=== PATIENT | female | born 1985 | race Caucasian/White ===

== ENCOUNTER 2017-03-06 08:27 | Inpatient (IN) | payer BC ==
[~2017-03-06] VITALS: Ht 139.7 cm; Wt 49.5 kg
[2017-03-06] VITALS (15 sets, daily range): BP systolic 80–127; BP diastolic 50–82
[2017-03-06] MEDS ORDERED: KETOROLAC 30 MG/ML VIAL. ONE (08:52)
--- NOTE | 2017-03-06 08:57 | ED.ADGEN ---
Past History Past Medical History: No Pertinent History Past Surgical History: Additional Past Surgical Histo: on June 04, 2016 Alcohol Use: None Drug Use: None Adult General HPI HPI Patient is a 32-year-old woman, with a history of surgery to the left kidney due to "a bent tube", per her description it sounds as though there was an issue with the ureter which was surgically repaired a urinary half ago , who presents to the emergency department with a complaint of left-sided flank pain, dysuria, nausea, vomiting, and fever that began yesterday. Patient states that she's had similar symptoms previously with a urinary tract infection. She states that she last followed with her urologist at in November, and was told that everything was working well. She has not had any history of kidney stones, she denies any injuries, any discharge or drainage from the vagina, any abdominal pain, any weakness, numbness, tingling, swelling extremities or other complaints. She has not taken anything prior to coming to the ED. Patient is febrile emergency department upon arrival, the temperature of 101.1 orally, heart rate of 103, blood pressure 128/68, oxygen saturation of 99% room air rested for rate is 20 and unlabored. Review of Systems Review of Systems Constitutional: Fever and chills 2 days. Eyes: Denies change in visual acuity, redness, or eye pain [] HENT: Denies nasal congestion or sore throat [] Respiratory: Denies cough or shortness of breath [] Cardiovascular: No additional information not addressed in HPI [] GI: Denies abdominal pain, bloody stools or diarrhea, nausea and vomiting 2 this morning. [] : Dysuria 2 days. Musculoskeletal: Denies back pain or joint pain [] left-sided flank pain. Integument: Denies rash or skin lesions [] Neurologic: Denies headache, focal weakness or sensory changes [] Endocrine: Denies polyuria or polydipsia [] Current Medications Current Medications Current Medications Medications (Trade) Dose Ordered Sig/Obdulio Start Time Stop Time Status Last Admin Dose Admin Acetaminophen (Tylenol) 1,000 mg 1X ONCE 03/06/17 09:00 03/06/17 09:01 DC 03/06/17 09:00 1,000 MG Fentanyl Citrate (Fentanyl 2ml Vial) 25 mcg PRN Q15MIN PRN 03/06/17 09:30 03/07/17 09:29 03/06/17 10:04 25 MCG Ketorolac Tromethamine (Toradol) 30 mg STK-MED ONCE 03/06/17 08:52 03/06/17 08:53 DC Levofloxacin (Levaquin) 750 mg STK-MED ONCE 03/06/17 09:30 03/06/17 09:31 DC Ondansetron HCl (Zofran) 4 mg 1X ONCE 03/06/17 09:00 03/06/17 09:01 DC 03/06/17 09:00 4 MG Phenazopyridine HCl (Pyridium) 200 mg 1X ONCE 03/06/17 09:45 03/06/17 09:46 DC 03/06/17 09:34 200 MG Sodium Chloride 1,000 ml @ 1,000 mls/hr 1X ONCE 03/06/17 09:45 03/06/17 10:44 DC 03/06/17 09:34 1,000 MLS/HR Allergies Allergies Allergies Coded Allergies Type Severity Reaction Last Updated Verified No Known Drug Allergies 06/09/16 No Physical Exam Physical Exam Constitutional: Well developed, well nourished, no acute distress, non-toxic appearance. [] HENT: Normocephalic, atraumatic, bilateral external ears normal, oropharynx moist, no oral exudates, nose normal. [] Eyes: PERRLA, EOMI, conjunctiva normal, no discharge. [] Neck: Normal range of motion, no tenderness, supple, no stridor. [] Cardiovascular:Heart rate regular rhythm, no murmur, S1, S2, no rubs or gallops. [] Lungs & Thorax: Bilateral breath sounds clear to auscultation , no wheezing, rhonchi, rales. No chest or crepitus or tenderness. [] Abdomen: Bowel sounds normal, soft, no tenderness, no rebound, rigidity, no guarding, no masses, no pulsatile masses. [] Skin: Warm, dry, no erythema, no rash. [] Back: No tenderness, patient with left-sided CVA tenderness. Extremities: No tenderness, no cyanosis, no clubbing, ROM intact, no edema. [] Negative Homans sign. Neurologic: Alert and oriented X 3, normal motor function, normal sensory function, no focal deficits noted. [] Psychologic: Affect normal, judgement normal, mood normal. [] Current Patient Data Vital Signs Vital Signs Date Time Temp Pulse Resp B/P (MAP) Pulse Ox O2 Delivery O2 Flow Rate FiO2 03/06/17 11:15 57 16 83/40 (54) 98 Room Air 03/06/17 08:35 101.0 Lab Results Laboratory Tests Test 03/06/17 08:40 03/06/17 08:51 03/06/17 08:53 Urine Collection Type Unknown Urine Color Yellow Urine Clarity Cloudy Urine pH 6.0 Urine Specific [place] 1.015 Urine Protein Neg (NEG-TRACE) Urine Glucose (UA) Neg mg/dL (NEG) Urine Ketones (Stick) Neg mg/dL (NEG) Urine Blood Small (NEG) Urine Nitrite Pos (NEG) Urine Bilirubin Neg (NEG) Urine Urobilinogen Dipstick 0.2 mg/dL (0.2 mg/dL) Urine Leukocyte Esterase Mod (NEG) Urine RBC 3-5 /HPF (0-2) Urine WBC >40 /HPF (0-4) Urine Squamous Epithelial Cells Few /LPF Urine Bacteria Many /HPF (0-FEW) Urine Mucus Slight /LPF POC Urine HCG, Qualitative hcg negative (Negative) White Blood Count 11.8 x10^3/uL (4.0-11.0) H Red Blood Count 4.51 x10^6/uL (3.50-5.40) Hemoglobin 11.8 g/dL (12.0-15.5) L Hematocrit 36.6 % (36.0-47.0) Mean Corpuscular Volume 81 fL (79-100) Mean Corpuscular Hemoglobin 26 pg (25-35) Mean Corpuscular Hemoglobin Concent 32 g/dL (31-37) Red Cell Distribution Width 14.3 % (11.5-14.5) Platelet Count 263 x10^3/uL (140-400) Neutrophils (%) (Auto) 82 % (31-73) H Lymphocytes (%) (Auto) 11 % (24-48) L Monocytes (%) (Auto) 6 % (0-9) Eosinophils (%) (Auto) 0 % (0-3) Basophils (%) (Auto) 1 % (0-3) Neutrophils # (Auto) 9.7 x10^3uL (1.8-7.7) H Lymphocytes # (Auto) 1.3 x10^3/uL (1.0-4.8) Monocytes # (Auto) 0.6 x10^3/uL (0.0-1.1) Eosinophils # (Auto) 0.0 x10^3/uL (0.0-0.7) Basophils # (Auto) 0.1 x10^3/uL (0.0-0.2) Sodium Level 134 mmol/L (136-145) L Potassium Level 3.4 mmol/L (3.5-5.1) L Chloride Level 101 mmol/L (98-107) Carbon Dioxide Level 29 mmol/L (21-32) Anion Gap 4 (6-14) L Blood Urea Nitrogen 8 mg/dL (7-20) Creatinine 0.9 mg/dL (0.6-1.0) Estimated GFR (Cockcroft-Gault) 72.6 Glucose Level 119 mg/dL (70-99) H Calcium Level 8.6 mg/dL (8.5-10.1) Magnesium Level 2.0 mg/dL (1.8-2.4) EKG EKG Not indicated. Radiology/Procedures Radiology/Procedures [] Course & Med Decision Making Course & Med Decision Making Pertinent Labs and Imaging studies reviewed. (See chart for details) Patient states that her last ultrasound performed several months ago, and was told to be normal at that time. Is agreeable to receiving IV fluids, antiemetics , pain medication, laboratory studies including urinalysis, and repeat ultrasound of the left kidney to ensure abnormalities since her surgery. Urinalysis is positive for nitrates, with greater than 40 white blood cells and many bacteria in the urine. Culture is pending. Patient given oral Levaquin, 750 mg in the ED by mouth without issue, along with Pyridium. On reevaluation, patient is now afebrile, oral temperature of 98.5, heart rate is now in the 60s and 70s, however blood pressure has dropped to 82/43, a second liter of fluid is administered. Patient states that she is feeling much better after receiving pain medication. After administration aside a liter fluid, patient received remains afebrile, has a leukocytosis that is very mild 11.8, without other concerning findings identified, and has tolerated oral medications. However she remains hypotensive, blood pressure of 74/36 when standing, heart rate in the 70s, and states that she is feeling dizzy. Patient has normal capillary refill, and states that this is happened previously when she's had infections in her kidney. She does reiterate that she is feeling better, although she is dizzy with standing. I did discuss with patient that due to her hypotension, with dizziness, that admission to hospital for continued IV fluids, monitoring, IV antibiotics for treatment of pyelonephritis would be most appropriate. Patient is agreeable with this plan. I did speak with Dr. Bocanegra of internal medicine, patient was accepted to her service as a full admission to the medical telemetry floor, will continue IV fluids, will proceed with IV ceftriaxone, and close monitoring. Bridge orders entered per discussion. Final Impression Final Impression [] Problems: Dragon Disclaimer Dragon Disclaimer This electronic medical record was generated, in whole or in part, using a voice recognition dictation system. Departure: Impression: Primary Impression: Pyelonephritis Additional Impression: Hypotension Disposition: ADMITTED INPATIENT Condition: LEIGHANNED ABHINAV DEL ROSARIO DO Mar 06, 2017 08:57
[2017-03-06] MEDS ORDERED: KETOROLAC 15 MG/ML VIAL. IV ONE (09:00)
[2017-03-06] MEDS ORDERED: IV NORMAL SALINE 1,000ML 1,000 ML IV SCH (09:00)
[2017-03-06] MEDS ORDERED: ONDANSETRON PF 4 MG/2 ML VIAL. IV ONE (09:00)
[2017-03-06] MEDS ORDERED: ACETAMINOPHEN 500 MG TABLET PO ONE (09:00)
[2017-03-06 09:06] LABS: BASO # 0.1 x10^3/uL (0.0-0.2); BASO % 1 % (0-3); EOS % 0 % (0-3); HEMATOCRIT 36.6 % (36.0-47.0); HEMOGLOBIN 11.8 g/dL (12.0-15.5); LYMPH # 1.3 x10^3/uL (1.0-4.8); LYMPH % 11 % (24-48); MEAN CORPUSCULAR HEMOGLOBIN 26 pg (25-35); MEAN CORPUSCULAR HGB CONC 32 g/dL (31-37); MEAN CORPUSCULAR VOLUME 81 fL (79-100); MONO # 0.6 x10^3/uL (0.0-1.1); MONO % 6 % (0-9); NEUT # 9.7 x10^3uL (1.8-7.7); NEUT % 82 % (31-73); PLATELET COUNT 263 x10^3/uL (140-400); RED BLOOD COUNT 4.51 x10^6/uL (3.50-5.40); RED CELL DISTRIBUTION WIDTH 14.3 % (11.5-14.5); WHITE BLOOD COUNT 11.8 x10^3/uL (4.0-11.0)
[2017-03-06 09:11] LABS: CALCIUM 8.6 mg/dL (8.5-10.1); CREATININE 0.9 mg/dL (0.6-1.0); GFR 72.6; POTASSIUM 3.4 mmol/L (3.5-5.1)
[2017-03-06 09:18] LABS: BILIRUBIN,URINE NEG (NEG); CLARITY,URINE CLOUDY; COLOR,URINE YELLOW; GLUCOSE,URINE NEG (NEG); NITRITE,URINE POS (NEG); UROBILINOGEN,URINE 0.2 mg/dL (0.2 mg/dL); WBC,URINE >40 /HPF (0-4)
[2017-03-06 09:19] LABS: BACTERIA,URINE MANY /HPF (0-FEW); SQUAMOUS EPITHELIAL CELL,UR FEW /LPF
[2017-03-06] MEDS ORDERED: fentaNYL PF 100 MCG/2 ML VIAL IV PRN ×2 (09:30→12:00)
[2017-03-06] MEDS ORDERED: levoFLOXacin 750 MG TABLET ONE (09:30)
[2017-03-06] MEDS ORDERED: levoFLOXacin 750 MG TABLET PO ONE (09:45)
[2017-03-06] MEDS ORDERED: IV NORMAL SALINE 1,000ML 1,000 ML IV ONE ×2 (09:45→12:00)
[2017-03-06] MEDS ORDERED: PHENAZOPYRIDINE 200 MG TABLET. PO ONE (09:45)
--- NOTE | 2017-03-06 10:55 | RAD ---
Left renal ultrasound, December 04, 2016: History: Pain, fever, recent ureteral surgery Only the left kidney was examined as requested. It measures 12.2 cm in length. There is a mildly prominent extrarenal pelvis. There is no evidence of hydronephrosis or a renal mass. The visualized portions of the urinary bladder are unremarkable. IMPRESSION: No significant left renal abnormality is detected.
[2017-03-06] MEDS ORDERED: ONDANSETRON PF 4 MG/2 ML VIAL. IV PRN (12:00)
[2017-03-06] MEDS ORDERED: IV NORMAL SALINE 50ML 50 ML ONE (12:05)
[2017-03-06] MEDS ORDERED: cefTRIAXone SODIUM 1 GM VIAL IV ONE (12:06)
[2017-03-06] MEDS ORDERED: IV NORMAL SALINE 1,000ML 1,500 ML IV ONE (13:00)
[2017-03-06] MEDS ORDERED: POTASSIUM CHLORIDE 20 MEQ TABLET.ER. PO ONE (13:45)
[2017-03-06] MEDS: IV NORMAL SALINE 1,000ML 1,000 ML IV SCH ×2 (13:55→17:11)
[2017-03-06] MEDS ORDERED: KETOROLAC 30 MG/ML VIAL. IV PRN (19:00)
[2017-03-06] MEDS: ACETAMINOPHEN 325 MG TABLET PO PRN (19:23)
--- NOTE | 2017-03-06 19:57 | HP ---
ADMIT DATE: 03/06/2017 REASON FOR ADMISSION: Pyelonephritis. HISTORY OF PRESENT ILLNESS: This is a 32-year-old female who presented to the Emergency Room complaining of left flank with a fever at home, nausea and vomiting. She has had a history of urinary tract infections at home. She is followed by an urologist at because she has a history of left kidney "bend tube but not exactly sure what the problem was." It was surgically repaired with not exactly sure what date is on that. PAST SURGICAL HISTORY: x 3 and this urologic surgery. MEDICATIONS: None. ALLERGIES: None. HABITS: Tobacco: None. Drugs: None. REVIEW OF SYSTEMS: Negative except for HPI. The patient is complaining of feeling a little dizzy also. IMMUNIZATIONS: Flu shot last year. OBJECTIVE: VITAL SIGNS: Temperature in the emergency room was 101, pulse 103. Initial blood pressure was 85/49, current blood pressure 113/82, height 55 inches, weight 107.38 pounds. GENERAL: A 32-year-old in no acute distress. HEENT: Hearing is normal. Her eyes are clear. Her throat was clear. NECK: Supple. There is no adenopathy. LUNGS: Clear to auscultation. CARDIOVASCULAR: Regular rhythm and rate. ABDOMEN: Soft, a little bit tender in the left upper quadrant. Positive left flank pain. Negative pain over the bladder. No other masses palpated. EXTREMITIES: Without edema. LABORATORY DATA: White blood cell count 11.8, 82% neutrophils, 11% lymphs. Chemistry: Sodium 134, potassium 3.4, lactic acid was 0.4. Urinalysis positive for nitrites, positive leukocyte esterase, greater than 40 white cells, 3-5 red cells. HCG negative. Left kidney ultrasound is negative. ASSESSMENT: Pyelonephritis, positive severe sepsis screen, dehydration, hypokalemia. PLAN: IV fluids, IV ceftriaxone, pain management with Toradol only. See how she is feeling tomorrow. LEXX PACE DO DR: MYNOR/brittany JOB#: [id number] / [id number]
[2017-03-07] VITALS (13 sets, daily range): BP systolic 87–105; BP diastolic 54–67
[2017-03-07] MEDS: IV NORMAL SALINE 1,000ML 1,000 ML IV SCH ×2 (01:06→10:41)
[2017-03-07 06:58] LABS: BASO # 0.1 x10^3/uL (0.0-0.2); BASO % 1 % (0-3); EOS # 0.1 x10^3/uL (0.0-0.7); EOS % 1 % (0-3); HEMATOCRIT 32.1 % (36.0-47.0); HEMOGLOBIN 10.2 g/dL (12.0-15.5); LYMPH # 2.5 x10^3/uL (1.0-4.8); LYMPH % 24 % (24-48); MEAN CORPUSCULAR HEMOGLOBIN 27 pg (25-35); MEAN CORPUSCULAR HGB CONC 32 g/dL (31-37); MEAN CORPUSCULAR VOLUME 83 fL (79-100); MONO # 0.7 x10^3/uL (0.0-1.1); MONO % 7 % (0-9); NEUT % 68 % (31-73); PLATELET COUNT 213 x10^3/uL (140-400); RED BLOOD COUNT 3.86 x10^6/uL (3.50-5.40); RED CELL DISTRIBUTION WIDTH 14.7 % (11.5-14.5); WHITE BLOOD COUNT 10.3 x10^3/uL (4.0-11.0)
[2017-03-07 06:59] LABS: CALCIUM 8.1 mg/dL (8.5-10.1); CREATININE 0.6 mg/dL (0.6-1.0); GFR 115.9; POTASSIUM 3.9 mmol/L (3.5-5.1)
[2017-03-07] MEDS ORDERED: MAGNESIUM SULFATE 2GM 50 ML IV ONE (07:30)
[2017-03-07] MEDS: ACETAMINOPHEN 325 MG TABLET PO PRN (08:31)
--- NOTE | 2017-03-07 14:26 | PDOC ---
PROGRESS NOTES Diagnosis Problem Problems Medical Problems: (1) Hypotension Status: Acute (2) Pyelonephritis Status: Acute Assessment Problems Medical Problems: (1) Hypotension Status: Acute (2) Pyelonephritis Status: Acute Subjective WANTS TO LEAVE AMA BUT WANTS A PRESCRIPTION FOR ANTIBIOTICS. I TOLD HER THIS AM THAT SHE HAS A KIDNEY INFECTION AND THAT SHE NEEDS ANOTHER DAY OF IV ANTIBIOTICS. SHE HAS NOT BEEN 24 HOURS WITHOUT A FEVER. SHE HAS SMALL CHILDREN AT HOME AND REALLY NEED TO REST . I CANNOT IN GOOD CONSCIENCE AGREE TO SEND HER HOME. Objective Vital Signs Date Time Temp Pulse Resp B/P (MAP) Pulse Ox O2 Delivery O2 Flow Rate FiO2 03/07/17 11:12 99.1 03/07/17 11:00 Room Air 03/07/17 07:44 77 20 98/67 (77) 99 Intake and Output 03/07/17 07:00 Intake Total 8982 ml Output Total 2125 ml Balance 6857 ml Intake Oral 1930 ml IV Total 7052 ml Output Urine Total 2125 ml # Voids 3 Review of Relevant I have reviewed the following items denise (where applicable) has been applied. Labs Laboratory Tests Test 03/06/17 08:40 03/06/17 08:51 03/06/17 08:53 03/06/17 12:58 Urine Collection Type Unknown Urine Color Yellow Urine Clarity Cloudy Urine pH 6.0 Urine Specific [place] 1.015 Urine Protein Neg (NEG-TRACE) Urine Glucose (UA) Neg mg/dL (NEG) Urine Ketones (Stick) Neg mg/dL (NEG) Urine Blood Small (NEG) Urine Nitrite Pos (NEG) Urine Bilirubin Neg (NEG) Urine Urobilinogen Dipstick 0.2 mg/dL (0.2 mg/dL) Urine Leukocyte Esterase Mod (NEG) Urine RBC 3-5 /HPF (0-2) Urine WBC >40 /HPF (0-4) Urine Squamous Epithelial Cells Few /LPF Urine Bacteria Many /HPF (0-FEW) Urine Mucus Slight /LPF Bedside Urine HCG, Qualitative hcg negative (Negative) White Blood Count 11.8 x10^3/uL (4.0-11.0) Red Blood Count 4.51 x10^6/uL (3.50-5.40) Hemoglobin 11.8 g/dL (12.0-15.5) Hematocrit 36.6 % (36.0-47.0) Mean Corpuscular Volume 81 fL (79-100) Mean Corpuscular Hemoglobin 26 pg (25-35) Mean Corpuscular Hemoglobin Concent 32 g/dL (31-37) Red Cell Distribution Width 14.3 % (11.5-14.5) Platelet Count 263 x10^3/uL (140-400) Neutrophils (%) (Auto) 82 % (31-73) Lymphocytes (%) (Auto) 11 % (24-48) Monocytes (%) (Auto) 6 % (0-9) Eosinophils (%) (Auto) 0 % (0-3) Basophils (%) (Auto) 1 % (0-3) Neutrophils # (Auto) 9.7 x10^3uL (1.8-7.7) Lymphocytes # (Auto) 1.3 x10^3/uL (1.0-4.8) Monocytes # (Auto) 0.6 x10^3/uL (0.0-1.1) Eosinophils # (Auto) 0.0 x10^3/uL (0.0-0.7) Basophils # (Auto) 0.1 x10^3/uL (0.0-0.2) Sodium Level 134 mmol/L (136-145) Potassium Level 3.4 mmol/L (3.5-5.1) Chloride Level 101 mmol/L (98-107) Carbon Dioxide Level 29 mmol/L (21-32) Anion Gap 4 (6-14) Blood Urea Nitrogen 8 mg/dL (7-20) Creatinine 0.9 mg/dL (0.6-1.0) Estimated GFR (Cockcroft-Gault) 72.6 Glucose Level 119 mg/dL (70-99) Calcium Level 8.6 mg/dL (8.5-10.1) Magnesium Level 2.0 mg/dL (1.8-2.4) Lactic Acid Level 0.4 mmol/L (0.4-2.0) Test 03/06/17 13:54 03/07/17 05:40 Nasal Screen MRSA (PCR) Negative (Negative) White Blood Count 10.3 x10^3/uL (4.0-11.0) Red Blood Count 3.86 x10^6/uL (3.50-5.40) Hemoglobin 10.2 g/dL (12.0-15.5) Hematocrit 32.1 % (36.0-47.0) Mean Corpuscular Volume 83 fL (79-100) Mean Corpuscular Hemoglobin 27 pg (25-35) Mean Corpuscular Hemoglobin Concent 32 g/dL (31-37) Red Cell Distribution Width 14.7 % (11.5-14.5) Platelet Count 213 x10^3/uL (140-400) Neutrophils (%) (Auto) 68 % (31-73) Lymphocytes (%) (Auto) 24 % (24-48) Monocytes (%) (Auto) 7 % (0-9) Eosinophils (%) (Auto) 1 % (0-3) Basophils (%) (Auto) 1 % (0-3) Neutrophils # (Auto) 7.0 x10^3uL (1.8-7.7) Lymphocytes # (Auto) 2.5 x10^3/uL (1.0-4.8) Monocytes # (Auto) 0.7 x10^3/uL (0.0-1.1) Eosinophils # (Auto) 0.1 x10^3/uL (0.0-0.7) Basophils # (Auto) 0.1 x10^3/uL (0.0-0.2) Sodium Level 136 mmol/L (136-145) Potassium Level 3.9 mmol/L (3.5-5.1) Chloride Level 107 mmol/L (98-107) Carbon Dioxide Level 21 mmol/L (21-32) Anion Gap 8 (6-14) Blood Urea Nitrogen 5 mg/dL (7-20) Creatinine 0.6 mg/dL (0.6-1.0) Estimated GFR (Cockcroft-Gault) 115.9 Glucose Level 89 mg/dL (70-99) Calcium Level 8.1 mg/dL (8.5-10.1) Magnesium Level 1.6 mg/dL (1.8-2.4) Microbiology 03/06/17 Blood Culture - Preliminary, Resulted NO GROWTH AFTER 1 DAY 03/06/17 Urine Culture - Preliminary, Resulted 03/06/17 Urine Culture Result 1 (DILSHAD) - Preliminary, Resulted Medications Current Medications Sodium Chloride 1,000 ml @ 1,000 mls/hr Q1H IV Last administered on 03/06/17t 08:55; Start 8/24/17 at 09:00; Stop 03/06/17 at 09:59; Status DC Ondansetron HCl (Zofran) 4 mg 1X ONCE IV Last administered on 03/06/17 09:00 ; Start 03/06/17 at 09:00; Stop 03/06/17 at 09:01; Status DC Ketorolac Tromethamine (Toradol) 10 mg 1X ONCE IV Last administered on 08:55; Start 03/06/17 at 09:00; Stop 03/06/17 at 09:01; Status DC Acetaminophen (Tylenol) 1,000 mg 1X ONCE PO Last administered on 03/06/17 09: 00; Start 03/06/17 at 09:00; Stop 03/06/17 at 09:01; Status DC Ketorolac Tromethamine (Toradol) 30 mg STK-MED ONCE .ROUTE ; Start 03/06/17 at 08:52; Stop 03/06/17 at 08:53; Status DC Levofloxacin (Levaquin) 750 mg 1X ONCE PO Last administered on 03/06/17 09:34 ; Start 03/06/17 at 09:45; Stop 03/06/17 at 09:46; Status DC Phenazopyridine HCl (Pyridium) 200 mg 1X ONCE PO Last administered on 09:34; Start 03/06/17 at 09:45; Stop 03/06/17 at 09:46; Status DC Sodium Chloride 1,000 ml @ 1,000 mls/hr 1X ONCE IV Last administered on 09:34; Start 03/06/17 at 09:45; Stop 03/06/17 at 10:44; Status DC Fentanyl Citrate (Fentanyl 2ml Vial) 25 mcg PRN Q15MIN PRN IV PAIN GREATER THAN 3/10 Last administered on 03/06/17 10:04; Start 03/06/17 at 09:30; Stop at 14:26; Status DC Levofloxacin (Levaquin) 750 mg STK-MED ONCE .ROUTE ; Start 03/06/17 at 09:30; Stop 03/06/17 at 09:31; Status DC Sodium Chloride 1,000 ml @ 125 mls/hr 1X ONCE IV Last administered on 12:00; Start 03/06/17 at 12:00; Stop 03/06/17 at 19:59; Status DC Ondansetron HCl (Zofran) 4 mg PRN Q4HRS PRN IV NAUSEA/VOMITING; Start 03/06/17 at 12:00; Stop 03/07/17 at 11:59; Status DC Fentanyl Citrate (Fentanyl 2ml Vial) 50 mcg PRN Q1HR PRN IV PAIN; Start at 12:00; Stop 03/06/17 at 14:26; Status DC Sodium Chloride 1,000 ml @ 125 mls/hr Q8H IV Last administered on 03/07/17 10 :41; Start 03/06/17 at 12:10; Stop 03/07/17 at 12:09; Status DC Acetaminophen (Tylenol) 650 mg PRN Q4HRS PRN PO FEVER Last administered on 03/07 08:31; Start 03/06/17 at 12:00; Stop 03/07/17 at 11:59; Status DC Ceftriaxone Sodium 1 gm/ Sodium Chloride 50 ml @ 100 mls/hr 1X ONCE IV Last administered on 03/06/17 12:05; Start 03/06/17 at 12:10; Stop 03/06/17 at 12:39 ; Status DC Ceftriaxone Sodium 1 gm/ Sodium Chloride 50 ml @ 100 mls/hr Q24H IV Last administered on 03/07/17 10:37; Start 03/07/17 at 12:00 Sodium Chloride 50 ml @ As Directed STK-MED ONCE .ROUTE ; Start 03/06/17 at 12: 05; Stop 03/06/17 at 12:13; Status DC Ceftriaxone Sodium (Rocephin) 1 gm STK-MED ONCE IV ; Start 03/06/17 at 12:06; Stop 03/06/17 at 12:13; Status DC Sodium Chloride 1,500 ml @ 1,500 mls/hr Q1H ONCE IV Last administered on 13:09; Start 03/06/17 at 13:00; Stop 03/06/17 at 13:59; Status DC Potassium Chloride (Klor-Con) 40 meq 1X ONCE PO Last administered on 13:55; Start 03/06/17 at 13:45; Stop 03/06/17 at 13:47; Status DC Ceftriaxone Sodium 1 gm/ Sodium Chloride 50 ml @ 100 mls/hr 1X ONCE IV Last administered on 03/06/17 13:30; Start 03/06/17 at 13:30; Stop 03/06/17 at 16:32 ; Status DC Ketorolac Tromethamine (Toradol) 30 mg PRN Q6HRS PRN IV PAIN; Start 03/06/17 at 19:00; Stop 03/11/17 at 18:59 Magnesium Sulfate 50 ml @ 25 mls/hr 1X ONCE IV Last administered on 03/07/17 08:15; Start 03/07/17 at 07:30; Stop 03/07/17 at 09:29; Status DC Active Scripts Active Reported No Known Medications Prior To Admisstion (Info) Each 1 Each Vitals/I & O Vital Sign - Last 24 Hours 03/06/17 03/06/17 03/06/17 03/06/17 14:30 15:00 15:30 16:00 Temp 98.2 Pulse 68 72 70 68 Resp 16 16 16 20 B/P (MAP) 80/50 (60) 94/59 (71) 94/59 (71) 94/58 (70) Pulse Ox 99 99 99 99 O2 Delivery Room Air Room Air Room Air Room Air 03/06/17 03/06/17 03/06/17 03/06/17 16:30 17:03 17:23 19:20 Pulse 70 68 75 Resp 22 16 16 B/P (MAP) 95/60 (72) 81/51 (61) 113/82 (92) Pulse Ox 98 99 99 O2 Delivery Room Air Room Air Room Air Room Air 03/06/17 03/06/17 03/06/17 03/06/17 19:36 20:10 21:20 23:05 Temp 101.1 100.1 99.8 Pulse 81 79 85 77 Resp 17 18 16 16 B/P (MAP) 113/72 (86) 127/81 (96) 110/74 (86) 104/74 (84) Pulse Ox 99 100 99 99 O2 Delivery Room Air Room Air Room Air Room Air 03/06/17 03/06/17 03/07/17 03/07/17 23:55 23:55 01:00 02:20 Pulse 82 75 77 Resp 16 16 16 B/P (MAP) 102/69 (80) 96/57 (70) 92/57 (69) Pulse Ox 100 98 99 O2 Delivery Room Air Room Air Room Air Room Air 03/07/17 03/07/17 03/07/17 03/07/17 03:05 03:55 03:55 05:10 Temp 99.4 Pulse 79 69 76 Resp 16 16 16 B/P (MAP) 91/58 (69) 93/59 (70) 99/63 (75) Pulse Ox 98 98 98 O2 Delivery Room Air Room Air Room Air Room Air 03/07/17 03/07/17 03/07/17 03/07/17 06:05 07:44 08:00 08:37 Temp 99.3 Pulse 70 77 Resp 18 20 B/P (MAP) 95/63 (74) 98/67 (77) Pulse Ox 99 99 O2 Delivery Room Air Room Air Room Air 03/07/17 03/07/17 03/07/17 09:22 11:00 11:12 Temp 99.7 99.1 O2 Delivery Room Air Intake and Output 03/06/17 03/06/17 03/07/17 15:00 23:00 07:00 Intake Total 4790 ml 1270 ml 2922 ml Output Total 575 ml 1550 ml Balance 4790 ml 695 ml 1372 ml LEXX PACE DO Mar 07, 2017 14:26
--- NOTE | 2017-03-07 14:54 | PDOC ---
OBJECTIVE: Problems: Problems Medical Problems: (1) Hypotension Status: Acute (2) Pyelonephritis Status: Acute Vital Signs: Vital Signs Date Time Temp Pulse Resp B/P (MAP) Pulse Ox O2 Delivery O2 Flow Rate FiO2 03/07/17 11:12 99.1 03/07/17 11:00 Room Air 03/07/17 07:44 77 20 98/67 (77) 99 I & O Intake and Output 03/07/17 07:00 Intake Total 8982 ml Output Total 2125 ml Balance 6857 ml Intake Oral 1930 ml IV Total 7052 ml Output Urine Total 2125 ml # Voids 3 Labs: Laboratory Tests Test 03/06/17 08:40 03/06/17 08:51 03/06/17 08:53 03/06/17 12:58 Urine Collection Type Unknown Urine Color Yellow Urine Clarity Cloudy Urine pH 6.0 Urine Specific [place] 1.015 Urine Protein Neg (NEG-TRACE) Urine Glucose (UA) Neg mg/dL (NEG) Urine Ketones (Stick) Neg mg/dL (NEG) Urine Blood Small (NEG) Urine Nitrite Pos (NEG) Urine Bilirubin Neg (NEG) Urine Urobilinogen Dipstick 0.2 mg/dL (0.2 mg/dL) Urine Leukocyte Esterase Mod (NEG) Urine RBC 3-5 /HPF (0-2) Urine WBC >40 /HPF (0-4) Urine Squamous Epithelial Cells Few /LPF Urine Bacteria Many /HPF (0-FEW) Urine Mucus Slight /LPF Bedside Urine HCG, Qualitative hcg negative (Negative) White Blood Count 11.8 x10^3/uL (4.0-11.0) Red Blood Count 4.51 x10^6/uL (3.50-5.40) Hemoglobin 11.8 g/dL (12.0-15.5) Hematocrit 36.6 % (36.0-47.0) Mean Corpuscular Volume 81 fL (79-100) Mean Corpuscular Hemoglobin 26 pg (25-35) Mean Corpuscular Hemoglobin Concent 32 g/dL (31-37) Red Cell Distribution Width 14.3 % (11.5-14.5) Platelet Count 263 x10^3/uL (140-400) Neutrophils (%) (Auto) 82 % (31-73) Lymphocytes (%) (Auto) 11 % (24-48) Monocytes (%) (Auto) 6 % (0-9) Eosinophils (%) (Auto) 0 % (0-3) Basophils (%) (Auto) 1 % (0-3) Neutrophils # (Auto) 9.7 x10^3uL (1.8-7.7) Lymphocytes # (Auto) 1.3 x10^3/uL (1.0-4.8) Monocytes # (Auto) 0.6 x10^3/uL (0.0-1.1) Eosinophils # (Auto) 0.0 x10^3/uL (0.0-0.7) Basophils # (Auto) 0.1 x10^3/uL (0.0-0.2) Sodium Level 134 mmol/L (136-145) Potassium Level 3.4 mmol/L (3.5-5.1) Chloride Level 101 mmol/L (98-107) Carbon Dioxide Level 29 mmol/L (21-32) Anion Gap 4 (6-14) Blood Urea Nitrogen 8 mg/dL (7-20) Creatinine 0.9 mg/dL (0.6-1.0) Estimated GFR (Cockcroft-Gault) 72.6 Glucose Level 119 mg/dL (70-99) Calcium Level 8.6 mg/dL (8.5-10.1) Magnesium Level 2.0 mg/dL (1.8-2.4) Lactic Acid Level 0.4 mmol/L (0.4-2.0) Test 03/06/17 13:54 03/07/17 05:40 Nasal Screen MRSA (PCR) Negative (Negative) White Blood Count 10.3 x10^3/uL (4.0-11.0) Red Blood Count 3.86 x10^6/uL (3.50-5.40) Hemoglobin 10.2 g/dL (12.0-15.5) Hematocrit 32.1 % (36.0-47.0) Mean Corpuscular Volume 83 fL (79-100) Mean Corpuscular Hemoglobin 27 pg (25-35) Mean Corpuscular Hemoglobin Concent 32 g/dL (31-37) Red Cell Distribution Width 14.7 % (11.5-14.5) Platelet Count 213 x10^3/uL (140-400) Neutrophils (%) (Auto) 68 % (31-73) Lymphocytes (%) (Auto) 24 % (24-48) Monocytes (%) (Auto) 7 % (0-9) Eosinophils (%) (Auto) 1 % (0-3) Basophils (%) (Auto) 1 % (0-3) Neutrophils # (Auto) 7.0 x10^3uL (1.8-7.7) Lymphocytes # (Auto) 2.5 x10^3/uL (1.0-4.8) Monocytes # (Auto) 0.7 x10^3/uL (0.0-1.1) Eosinophils # (Auto) 0.1 x10^3/uL (0.0-0.7) Basophils # (Auto) 0.1 x10^3/uL (0.0-0.2) Sodium Level 136 mmol/L (136-145) Potassium Level 3.9 mmol/L (3.5-5.1) Chloride Level 107 mmol/L (98-107) Carbon Dioxide Level 21 mmol/L (21-32) Anion Gap 8 (6-14) Blood Urea Nitrogen 5 mg/dL (7-20) Creatinine 0.6 mg/dL (0.6-1.0) Estimated GFR (Cockcroft-Gault) 115.9 Glucose Level 89 mg/dL (70-99) Calcium Level 8.1 mg/dL (8.5-10.1) Magnesium Level 1.6 mg/dL (1.8-2.4) PLAN: LEFT AMA AND COULD NOT BE PERSUADED. LEXX PACE DO Mar 07, 2017 14:54
--- NOTE | 2017-03-08 06:05 | PN ---
DATE: 03/07/2017 PROBLEMS: 1. Pyelonephritis. 2. Positive severe sepsis screen. 3. Dehydration. 4. Hypokalemia. 5. Hypomagnesemia. SUBJECTIVE: The patient wants to go home today. She has 3 children including a [id number]-cut, the was up with all night; however, she spiked, she had a temperature last night of 100.1 and this morning was 99.7, blood pressure has stabilized and I suspect she has a low normal blood pressure, as she has had 5 liters of fluid. She continues on ceftriaxone and she states she feels better. OBJECTIVE: VITAL SIGNS: Blood pressure 99/63, pulse 76, respirations 16, pulse ox 98% on room air, temperature is 99.4, temperature at the time of exam was 99.7. Intake 8982. Output 2125. GENERAL: Color is better. HEENT: Her tongue is moist. NECK: Supple. LUNGS: Clear. CARDIOVASCULAR: Regular rhythm and rate. ABDOMEN: Soft, nontender. She does still have some left flank pain. EXTREMITIES: Without edema. She did get up and move around without difficulty. PLAN: We will monitor through the day if she feels and I will anticipate discharge tomorrow. I prefer that she stay, get another dose of IV antibiotics and go . She is anxious to leave, but I would prefer that she stay till tomorrow. LEXX PACE DO DR: MYNOR/brittany JOB#: [id number] / [id number]
== END 2017-03-07 14:15 | disposition left against medical advice (07) | DRG 871 ==
LOC: ER 08:27 → ICU 11:48
PROVIDERS: ADMIT Family Medicine; ATTEND Family Medicine
DX: A41.9 Sepsis, unspecified organism (principal); R65.21 Severe sepsis with septic shock; I95.9 Hypotension, unspecified; E83.42 Hypomagnesemia; N12 Tubulo-interstitial nephritis, not specified as acute or chronic; E86.0 Dehydration; E87.6 Hypokalemia; Z53.21 Procedure and treatment not carried out due to patient leaving prior to being seen by health care provider
CPT/HCPCS: 36415; 76775; 80048; 81001; 81025; 83605; 83735; 85025; 87040; 87086; 87186; 87641; 96361; 96374; 96375; J0696; J1885; J2405; J3010; J3475; 99285-25; J7030

== ENCOUNTER 2017-08-24 05:38 | Emergency (ER) | payer BC ==
[~2017-08-24] VITALS: Ht 139.7 cm; Wt 49.8 kg
[2017-08-24 05:45] VITALS: BP 104/67
--- NOTE | 2017-08-24 06:38 | PHYS DOC ---
Past History Past Medical History: No Pertinent History Past Surgical History: Additional Past Surgical Histo: on June 04, 2016 Smoking: Non-smoker Alcohol Use: None Drug Use: None Adult General Chief Complaint Chief Complaint: FLU SYMPTOM HPI HPI 32 years old female patient without medical problem complaining of nasal congestion, nonproductive cough, chest soreness during episodes of cough, fever up to 102 , decrease of appetite since yesterday after she had sick contact at home. Patient had ibuprofen at 0300. Patient denies , vomiting, diarrhea, urinary symptoms. Review of Systems Review of Systems Constitutional: Reports fever and chills [] Eyes: Denies change in visual acuity, redness, or eye pain [] HENT: Reports nasal congestion and sore throat [] Respiratory: Reports cough , denies shortness of breath [] Cardiovascular: No additional information not addressed in HPI [] GI: Denies abdominal pain, nausea, vomiting, bloody stools or diarrhea [] : Denies dysuria or hematuria [] Musculoskeletal: Denies back pain or joint pain [] Integument: Denies rash or skin lesions [] Neurologic: Denies headache, focal weakness or sensory changes [] Endocrine: Denies polyuria or polydipsia [] All other systems were reviewed and found to be within normal limits, except as documented in this note. Allergies Allergies Allergies Coded Allergies Type Severity Reaction Last Updated Verified No Known Drug Allergies 06/09/16 No Physical Exam Physical Exam Constitutional: Well developed, well nourished, mild distress, non-toxic appearance. [] HENT: Normocephalic, atraumatic, bilateral external ears normal, pharyngeal erythema, oropharynx moist, no oral exudates, nose normal. [] Eyes: PERRLA, EOMI, conjunctiva normal, no discharge. [] Neck: Normal range of motion, no tenderness, supple, no stridor. [] Cardiovascular:Heart rate regular rhythm, no murmur [] Lungs & Thorax: Bilateral breath sounds clear to auscultation [] Abdomen: Bowel sounds normal, soft, no tenderness, no masses, no pulsatile masses. [] Skin: Warm, dry, no erythema, no rash. [] Back: No tenderness, no CVA tenderness. [] Extremities: No tenderness, no cyanosis, no clubbing, ROM intact, no edema. [] Neurologic: Alert and oriented X 3, normal motor function, normal sensory function, no focal deficits noted. [] Psychologic: Affect normal, judgement normal, mood normal. [] EKG EKG [] Radiology/Procedures Radiology/Procedures [] Course & Med Decision Making Course & Med Decision Making Pertinent Labs reviewed. (See chart for details) Evaluation of patient in ER showed 32-year-old female patient with flulike symptoms for 2 days. Patient presented with 4 other family members and 2 of them had positive flu A. Because of the same symptom in all family members plan to treat her with Tamiflu. Dragon Disclaimer Dragon Disclaimer This electronic medical record was generated, in whole or in part, using a voice recognition dictation system. Departure Departure: Impression: Primary Impression: Influenza A Disposition: 01 HOME, SELF-CARE Condition: STABLE Referrals: PCP,HERMAN (PCP) Patient Instructions: Influenza A (H1N1) Additional Instructions: Drink plenty of liquids Follow-up with your primary care physician in 3-5 days Return to ER if not getting better Scripts Oseltamivir Phosphate (TAMIFLU) 75 Mg Capsule 1 CAP PO BID, #10 CAP Prov: RAFY CONWAY MD 08/24/17 RAFY CONWAY MD Aug 24, 2017 06:38
[2017-08-24] MEDS ORDERED: OSEL75CA PO (07:31)
[2017-08-24] MEDS ORDERED: OSELTAMIVIR 75 MG CAPSULE PO ONE (07:45)
[2017-08-24 07:52] LABS: INFLUENZA A PATIENT NEGATIVE (NEGATIVE); INFLUENZA B PATIENT NEGATIVE (NEGATIVE)
== END 2017-08-24 08:20 | disposition home or self-care (01) ==
LOC: ER 05:42
DX: J09.X2 Influenza due to identified novel influenza A virus with other respiratory manifestations (principal)
CPT/HCPCS: 87070; 87804; 87880; 99284

== ENCOUNTER 2017-12-30 22:01 | Emergency (ER) | payer BC ==
[~2017-12-30] VITALS: Ht 139.7 cm; Wt 49.8 kg
[~2017-12-30 22:01] MED LIST: OSEL75CA PO
[2017-12-30 22:37] VITALS: BP 112/76
--- NOTE | 2017-12-30 22:59 | ED.ADGEN ---
Past History Past Medical History: No Pertinent History Past Surgical History: Other Additional Past Surgical Histo: on June 04, 2016 Smoking: Non-smoker Alcohol Use: Occasionally Drug Use: None Adult General Chief Complaint Chief Complaint ".. Two days.. ago.. I woke up ... with this pain... in my neck.... HPI HPI Patient is a 32 year old female who presents with above hx and complaints of Rt. sided neck pain and spasms since 2 days ago. Pt. has currently trapezius spasm on Rt. side. Has increased spasms when brushing her hair. Has limited range of motion because of spasm. No midline tenderness per se. Patient describes pain as severe when she has a cramp or severe spasm. 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 Patient denies any history of trauma. Patient denies any history of fever, chills or immunosuppression. No history of travel or specific ill contacts. Patient normally follows at for care. Review of Systems Review of Systems Constitutional: Denies fever or chills [] Eyes: Denies change in visual acuity, redness, or eye pain [] HENT: Denies nasal congestion or sore throat [] Respiratory: Denies cough or shortness of breath [] Cardiovascular: No additional information not addressed in HPI [] GI: Denies abdominal pain, nausea, vomiting, bloody stools or diarrhea [] : Denies dysuria or hematuria [] Musculoskeletal: Denies back pain or joint pain []complains of cervical muscle spasms on right Integument: Denies rash or skin lesions [] Neurologic: Denies headache, focal weakness or sensory changes [] Endocrine: Denies polyuria or polydipsia [] All other systems were reviewed and found to be within normal limits, except as documented in this note. Family History Family History Noncontributory Current Medications Current Medications Current Medications Medications (Trade) Dose Ordered Sig/Obdulio Start Time Stop Time Status Last Admin Dose Admin Ketorolac Tromethamine (Toradol) 60 mg 1X ONCE 12/30/17 23:15 12/30/17 23:16 DC 12/30/17 23:26 60 MG Allergies Allergies Allergies Coded Allergies Type Severity Reaction Last Updated Verified No Known Drug Allergies 06/09/16 No Physical Exam Physical Exam Constitutional: Well developed, well nourished, moderately acute distress, non- toxic appearance. [] HENT: Normocephalic, atraumatic, bilateral external ears normal, oropharynx moist, no oral exudates, nose normal. [] Eyes: PERRLA, EOMI, conjunctiva normal, no discharge. [] Neck: Normal range of motion limited as per HPI,. No cervical tenderness on percussion. Localized to trapezius Rt. Lungs & Thorax: Bilateral breath sounds clear to auscultation [] Abdomen: Bowel sounds normal, soft, no tenderness, no masses, no pulsatile masses. [] Skin: Warm, dry, no erythema, no rash. [] Back: No tenderness, no CVA tenderness. [] Extremities: No tenderness, no cyanosis, no clubbing, ROM intact, no edema. [] Neurologic: Alert and oriented X 3, normal motor function, normal sensory function, no focal deficits noted. []Title Supervisor equal. Rt hand dominate. DTR +2 patella and brachial . Psychologic: Affect anxious, judgement normal, mood normal. [] Current Patient Data Vital Signs Vital Signs Date Time Temp Pulse Resp B/P (MAP) Pulse Ox O2 Delivery O2 Flow Rate FiO2 12/30/17 22:37 98.4 73 19 97 Room Air EKG EKG [] Radiology/Procedures Radiology/Procedures [] Course & Med Decision Making Course & Med Decision Making Pertinent Labs and Imaging studies reviewed. (See chart for details) Ice packs as needed. Take tylenol and ibuprofen for pain. Massage. Flexeril up to tid for spasm. Vicoprofen for marked pain. Must follow up with primary. Return if any concerns. Sleep with roll behind neck. [] Final Impression Final Impression 1. Torticollis[] 2. Muscle spasm Trapezius Rt. Dragon Disclaimer Dragon Disclaimer This electronic medical record was generated, in whole or in part, using a voice recognition dictation system. LANETTE MOODY MD Dec 30, 2017 22:59
[2017-12-30] MEDS ORDERED: CYCL-331 PO (23:14)
[2017-12-30] MEDS ORDERED: HYDR-79 PO (23:14)
[2017-12-30] MEDS ORDERED: KETOROLAC 60 MG/2 ML VIAL. IM ONE (23:15)
== END 2017-12-31 00:01 | disposition home or self-care (01) ==
LOC: ER 22:01
DX: M43.6 Torticollis (principal); M62.838 Other muscle spasm
CPT/HCPCS: 96372; 99283; J1885

== ENCOUNTER 2020-11-18 17:07 | Emergency (ER) | payer BC, OTHER ==
[~2020-11-18] VITALS: Ht 139.7 cm; Wt 55.1 kg
[~2020-11-18 17:07] MED LIST changes: +CYCL-331 PO; +HYDR-1179 PO
[2020-11-18 17:21] VITALS: BP 139/97
[2020-11-18] MEDS ORDERED: IBUP600T16 PO (17:42)
[2020-11-18] MEDS ORDERED: CYCL-331 PO (17:42)
--- NOTE | 2020-11-18 17:43 | PHYS DOC ---
Past History Past Medical History: No Pertinent History Past Surgical History: Other Additional Past Surgical Histo: on June 04, 2016 Smoking: Non-smoker Alcohol Use: Occasionally Drug Use: None Adult General Chief Complaint Chief Complaint: BACK PAIN OR INJURY [facility] HPI Patient is a 35-year-old female who presents to the emergency department complaining of strain in her upper back while at work 2 months ago. Patient states that she has been treating with [id number] ibuprofen intermittently at home with some relief, patient states that it continues to come back daily for the past 2 months. Patient states she had a similar episode last year and was prescribed a muscle relaxer which relieved her pain. Patient denies any chest pain, cough, shortness of breath, chest or nasal congestion. Patient denies rashes of her skin. Patient denies any allergies to medications states she takes no prescription medications at home, states she has no primary care physician. Patient reports her last menstrual cycle was over a year ago when she had her Implanon placed. Patient denies any other physical complaints or physical concerns. Review of Systems Review of Systems 14 body systems of review of systems have been reviewed. See HPI for pertinent positives and negative responses, otherwise all other systems are negative, nonpertinent or noncontributory. Allergies Allergies Allergies Coded Allergies Type Severity Reaction Last Updated Verified No Known Drug Allergies 06/09/16 No Physical Exam Physical Exam Constitutional: Well developed, well nourished, no acute distress, non-toxic appearance. 35-year-old female no apparent distress. HENT: Normocephalic, atraumatic, bilateral external ears normal, oropharynx moist, no oral exudates, nose normal. Oropharynx moist, pink, no deep tissue infectious process appreciated, no drooling, no trismus. Eyes: PERRLA, EOMI, conjunctiva normal, no discharge. Neck: Normal range of motion, no tenderness, supple, no stridor. No C-spine tenderness, no meningismus signs, no nuchal rigidity. Cardiovascular:Heart rate regular rhythm, no murmur, heart sounds S1-S2 to auscultation. Lungs & Thorax: Bilateral breath sounds clear to auscultation no adventitious lung sounds appreciated. Abdomen: Bowel sounds normal, soft, no tenderness, no masses, no pulsatile masses. Skin: Warm, dry, no erythema, no rash. Back: No vertebral spine tenderness to palpation, no right-sided or left-sided CVA tenderness, tenderness to palpation along left-sided rhomboid musculature surfaces. No swelling, no bruising appreciated. Extremities: No tenderness, no cyanosis, no clubbing, ROM intact, no edema. No numbness or tingling down upper or lower extremities, distal cap refill less than 2 seconds. Neurologic: Alert and oriented X 3, normal motor function, normal sensory func tion, no focal deficits noted. Psychologic: Affect normal, judgement normal, mood normal. EKG EKG [] Radiology/Procedures Radiology/Procedures [] Heart Score C/O Chest Pain: No Risk Factors: Risk Factors: DM, Current or recent (<one month) smoker, HTN, HLP, family history of CAD, obesity. Risk Scores: Risk Factors: DM, Current or recent (<one month) smoker, HTN, HLP, family history of CAD, obesity. Course & Med Decision Making Course & Med Decision Making Pertinent Labs and Imaging studies reviewed. (See chart for details) 35-year-old female, vital signs reviewed, presents to the emergency department concerning chronic upper left back pain and requesting a muscle relaxer for relief. Patient's physical exam consistent with muscle strain. Patient had good relief with a Flexeril prescription a year ago. Discussed with patient need to obtain a negative test, and will discharge home with a prescription for 10 mg Flexeril to take 3 times a day as needed for muscle cramping and discomfort, will also prescribe 600 mg ibuprofen to take 3 times a day for pain and discomfort as well. Patient does not have a primary care physician, will refer to [facility] for outpatient follow-up and ongoing medical care. The patient was not per urine test. Patient gave verbal understanding of discharge home instructions, muscle relaxer use, follow-up with primary care for ongoing pain management, return to ER precautions or concerns, patient was discharged home without incident. Dragon Disclaimer Dragon Disclaimer This electronic medical record was generated, in whole or in part, using a voice recognition dictation system. Departure Departure: Impression: Primary Impression: Muscle strain of left upper back Disposition: HOME / SELF CARE / HOMELESS Condition: GOOD Referrals: PCPHERMAN (PCP) BLANCA LEE Patient Instructions: Muscle Strain Additional Instructions: You are seen in the emergency department today for pain in your left upper back, you are diagnosed with a muscle strain. You have had success with muscle relaxer prescription in the past for similar pains. I am prescribing you 10 mg Flexeril that you may take up to 3 times a day for pain. I am also prescribing you 600 mg Motrin that you may take 3 times a day as well for pain and discomfort. You have indicated that you do not have a primary care provider, I recommend that you see a primary care provider for ongoing pain management, if you are unable to secure an appointment with 1, I have given a referral healthcare provider for you, [facility] Monc[facility]. Please return to the emergency department for worsening symptoms or other concerns. EMERGENCY DEPARTMENT GENERAL DISCHARGE INSTRUCTIONS Thank you for coming to [facility] (ED) today and trusting us with you care. We trust that you had a positivie experience in our Emergency Department. If you wish to speak to the department management, you may call the director at [phone]. YOUR FOLLOW UP INSTRUCTIONS ARE FOLLOWS: 1. Do you have a private Doctor? If you do not have a private doctor, please ask for a resource list of physicians or clinics that may be able to assist you with follow up care. 2. The Emergency Physician has interpreted your x-rays. The X-Ray specialist will also review them. If there is a change in the findings, you will be notified in 48 hours when at all possible. 3. A lab test or culture has been done, your results will be reviewed and you will be notified if you need a change in treatment. ADDITIONAL INSTRUCTIONS AND INFORMATION: 1. Your care today has been supervised by a physician who is specially trained in emergency care. Many problems require more than one evaluation for a complete diagnosis and treatment. We recommend that you schedule your follow up appointment as recommended to ensure complete treatment of you illness or injury. If you are unable to obtain follow up care and continue to have a problem, or if your condition worsens, we recommend that you return to the ED. 2. We are not able to safely determine your condition over the phone nor are we able to give sound medical advice over the phone. For these safety reasons, if you call for medical advice we will ask you to come to the ED for further evaluation. 3. If you have any questions regarding these discharge instructions please call the ED at [phone]. SAFETY INFORMATION: In the interest of safety, wellness, and injury prevention; we encourage you to wear your sealbelt, if you smoke; quite smoking, and we encourage family to use a protective helmet for bicycling and other sporting events that present an increased risk for head injury. IF YOUR SYMPTOMS WORSEN OR NEW SYMPTOMS DEVELOP, OR YOU HAVE CONCERNS ABOUT YOUR CONDITION; OR IF YOUR CONDITION WORSENS WHILE YOU ARE WAITING FOR YOUR FOLLOW UP APPOINTMENT; EITHER CONTACT YOUR PRIMARY CARE DOCTOR, THE PHYSICIAN WHOSE NAME AND NUMBER YOU WERE GIVEN, OR RETURN TO THE ED IMMEDIATELY. Scripts Ibuprofen (IBUPROFEN) 600 Mg Tablet 600 MG PO TID PRN PRN for PAIN, #20 TAB 0 Refills Prov: DAVID ANSARI APRN 11/18/20 Cyclobenzaprine Hcl (CYCLOBENZAPRINE HCL) 10 Mg Tablet 1 TAB PO TID PRN PRN for PAIN, #12 TAB 0 Refills Prov: DAVID ANSARI APRN 11/18/20 Problem Qualifiers Primary Impression: Muscle strain of left upper back Encounter type: initial encounter Qualified Codes: S29.012A - Strain of muscle and tendon of back wall of thorax, initial encounter DAVID ANSARI APRN November 18, 2020 17:43
== END 2020-11-18 17:49 | disposition home or self-care (01) ==
LOC: ER 17:07
DX: S29.012A Strain of muscle and tendon of back wall of thorax, initial encounter (principal); X58.XXXA Exposure to other specified factors, initial encounter; Y93.89 Activity, other specified; Y92.89 Other specified places as the place of occurrence of the external cause; Y99.8 Other external cause status
CPT/HCPCS: 81025; 99282-25

== ENCOUNTER 2021-11-04 00:46 | Emergency (ER) | payer OTHER ==
[~2021-11-04] VITALS: Ht 152.4 cm; Wt 45.1 kg
[~2021-11-04 00:46] MED LIST changes: -CYCL-331 PO; +CYCL10TA19 PO; +IBUP600T16 PO
--- NOTE | 2021-11-04 01:25 | PHYS DOC ---
Past History Past Medical History: No Pertinent History Past Surgical History: Other Additional Past Surgical Histo: on June 04, 2016 Smoking: Non-smoker Alcohol Use: None Drug Use: None General Adult EDM: Chief Complaint: DIZZY/LIGHT HEADED HPI: HPI: ".. I was upset yesterday.. maybe drank too much.. I feeling a little off today... dizzy...My father is sick and he was sent back to the [facility]... and it has really upset me.. '" Patient is a 36 year old female who presents with above hx and complaints of dizziness. Did have COVID infection 4 months ago. Has had Covid Pfizer x 2 and flu vaccination. No significant ill contacts. No history of recent travel. Denies use of illicit drugs. 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 Patient does have a past history of depression and had suicidal attempt last year. Patient d enies any suicide ideation currently. Patient is not on any meds currently. Currently lives with brother. Review of Systems: Review of Systems: Constitutional: Denies fever or chills Eyes: Denies change in visual acuity HENT: Denies nasal congestion or sore throat Respiratory: Denies cough or shortness of breath Cardiovascular: Denies chest pain or edema GI: Denies abdominal pain, nausea, vomiting, bloody stools or diarrhea : Denies dysuria Musculoskeletal: Denies back pain or joint pain Integument: Denies rash Neurologic: Denies headache, focal weakness or sensory changes. Complains of dizziness. Endocrine: Denies polyuria or polydipsia Lymphatic: Denies swollen glands Psychiatric: Denies depression or anxiety Family History: Family History: Father has kidney failure Current Medications: Current Meds: See nursing for home meds Allergies: Allergies: Patient states bananas because her throat become irritated Allergies Coded Allergies Type Severity Reaction Last Updated Verified No Known Drug Allergies 06/09/16 No Physical Exam: PE: Constitutional: Well developed, well nourished, moderate acute emotional distress, non-toxic appearance. [] HENT: Normocephalic, atraumatic, bilateral external ears normal, oropharynx mois t, no oral exudates, nose normal. [] Eyes: PERRLA, EOMI, conjunctiva mild injection,, no discharge. [] Neck: Normal range of motion, no tenderness, supple, no stridor. [] Cardiovascular:Heart rate regular rhythm, no murmur [] Lungs & Thorax: Bilateral breath sounds equal apex on auscultation [] Abdomen: Bowel sounds normal, soft, no tenderness, no masses, no pulsatile masses. Old surgery scars. Skin: Warm, dry, no erythema, no rash. [] Back: No tenderness, no CVA tenderness. [] Extremities: No tenderness, no cyanosis, no clubbing, ROM intact, no edema. No cording appreciated Neurologic: Alert and oriented X 3, DTRs +2 patella and brachial. No drift. 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 Right-hand dominant. Scar denise left wrist,, no focal deficits noted. Patient is ambulatory without problems. Psychologic: Affect anxious, judgement normal, mood depressed. Denies suicidal ideation. Denies hallucinations. EKG: EKG: My interpretation EKG shows sinus rhythm at 76 bpm. Some nonspecific T wave changes anterior lateral area. But no findings of acute STEMI of contralateral changes. Time of EKG is 147 hours [] Radiology/Procedures: Radiology/Procedures: [] Heart Score: C/O Chest Pain: N/A HEART Score for Chest Pain: HEART Score for Chest Pain Response (Comments) Value History Slighlty/Non-Suspicious 0 ECG Nonspecific Repolarizatio 1 Age < 45 0 Risk Factors No Risk Factors 0 Troponin < Normal Limit 0 Total 1 Risk Factors: Risk Factors: DM, Current or recent (<one month) smoker, HTN, HLP, family history of CAD, obesity. Risk Scores: Score 0 - 3: 2.5% MACE over next 6 weeks - Discharge Home Score 4 - 6: 20.3% MACE over next 6 weeks - Admit for Clinical Observation Score 7 - 10: 72.7% MACE over next 6 weeks - Early Invasive Strategies Course & Med Decision Making: Course & Med Decision Making Pertinent Labs and Imaging studies reviewed. (See chart for details) Patient follow-up primary care. Patient to consider follow-up with counseling center. Patient push fluids. Patient avoid further alcohol use. Patient return if any concerns. Impression: 1. Dizzy 2. History of excessive alcohol intake yesterday. 3. History of depression.(Denies suicidal ideation) 4. Hx.of anxiety [] Dragon Disclaimer: Dragon Disclaimer: This electronic medical record was generated, in whole or in part, using a voice recognition dictation system. Departure Departure: Referrals: PCP,NO (PCP) Sandra Disclaimer This chart was dictated in whole or in part using Voice Recognition software in a busy, high-work load, and often noisy Emergency Department environment. It may contain unintended and wholly unrecognized errors or omissions. LANETTE MOODY MD Nov 04, 2021 01:25
[2021-11-04] MEDS: IV RINGERS SOLUTION,LACTATED 1,000 ML IV SCH (02:00)
--- NOTE | 2021-11-04 02:04 | EKG ---
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
[2021-11-04 02:06] LABS: BACTERIA,URINE FEW /HPF (0-FEW); CLARITY,URINE CLEAR; COLOR,URINE YELLOW; GLUCOSE,URINE NEG (NEG); NITRITE,URINE NEG (NEG); SQUAMOUS EPITHELIAL CELL,UR MANY /LPF; UROBILINOGEN,URINE 0.2 mg/dL (0.2 mg/dL)
[2021-11-04 02:45] LABS: BASO # 0.1 x10^3/uL (0.0-0.2); BASO % 1 % (0-3); EOS # 0.2 x10^3/uL (0.0-0.7); EOS % 2 % (0-3); HEMOGLOBIN 14.3 g/dL (12.0-15.5); LYMPH # 2.7 x10^3/uL (1.0-4.8); LYMPH % 30 % (24-48); MEAN CORPUSCULAR HEMOGLOBIN 32 pg (25-35); MEAN CORPUSCULAR HGB CONC 34 g/dL (31-37); MEAN CORPUSCULAR VOLUME 93 fL (79-100); MONO # 0.5 x10^3/uL (0.0-1.1); MONO % 5 % (0-9); NEUT # 5.7 x10^3uL (1.8-7.7); NEUT % 62 % (31-73); PLATELET COUNT 333 x10^3/uL (140-400); RED CELL DISTRIBUTION WIDTH 12.5 % (11.5-14.5); WHITE BLOOD COUNT 9.1 x10^3/uL (4.0-11.0)
[2021-11-04 03:01] LABS: CALCIUM 9.1 mg/dL (8.5-10.1); CREATININE 0.6 mg/dL (0.6-1.0); GFR 113.1
--- NOTE | 2021-11-04 03:05 | RAD ---
Study: XR CHEST 1V Indication: Dizziness. Shortness of breath. Comparison: 06/09/2016 Findings: The cardiomediastinal silhouette and kirsten are within normal limits. No localized airspace opacity, pl eural effusion or pneumothorax. Redemonstration of broad thoracic dextrocurvature. Impression: No acute radiographic abnormality of the chest. No relevant change from the 06/09/2016 comparison. Electronically signed by: LAVERNE MEEK MD (11/04/2021 3:02 AM) [facility]
[2021-11-04 03:14] LABS: ALBUMIN 4.2 g/dL (3.4-5.0); DIRECT BILIRUBIN 0.1 mg/dL (0.0-0.2); MAGNESIUM 2.3 mg/dL (1.8-2.4); TOTAL BILIRUBIN 0.3 mg/dL (0.2-1.0); TOTAL PROTEIN 8.1 g/dL (6.4-8.2)
== END 2021-11-04 04:05 | disposition home or self-care (01) ==
LOC: ER 00:48
DX: R42 Dizziness and giddiness (principal); F41.9 Anxiety disorder, unspecified; F32.9 Major depressive disorder, single episode, unspecified
CPT/HCPCS: 36415; 71045; 80048; 80076; 81001; 81025; 82550; 83690; 83735; 83880; 84443; 84484; 85025; 85379; 85610; 85730; 93005; 96360; 99285; G0480; J7120

== ENCOUNTER 2021-11-06 05:13 | Emergency (ER) | payer OTHER ==
[~2021-11-06] VITALS: Ht 152.4 cm; Wt 48.0 kg
[2021-11-06] MEDS ORDERED: PHENYLEPHRINE 10 MG/ML VIAL. IV ONE ×3 (05:22→08:09)
[2021-11-06] MEDS ORDERED: NOREPINEPHRINE BITARTRATE 4 MG/4 ML VIAL. IV ONE ×2 (05:43→08:00)
[2021-11-06] MEDS ORDERED: NOREPINEPHRINE BITARTRATE 8 MG in IV DEXTROSE 5% 250 ML IV PRN (05:45)
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
[2021-11-06] MEDS ORDERED: CONTRAST GIVEN. MC PRN (06:15)
--- NOTE | 2021-11-06 06:28 | RAD ---
Study: XR CHEST 1V Indication: Intubation. Comparison: 11/04/2021 Findings: Endotracheal tube tip terminates 4 cm above the elsa. Defibrillator pads. Accentuation of heart size by technique. Mild asymmetric hilar prominence on the right. Mildly increa sed interstitial markings. No large effusion or pneumothorax. Gaseous distention of the stomach and visualized bowel. Impression: 1. Endotracheal tube tip 4 cm above the elsa. 2. Probable mild interstitial edema. No pneumothorax or large effusion. 3. Nonspecific gaseous distention of the stomach and partially imaged bowel. Electronically signed by: LAVERNE MEEK MD (11/06/2021 6:26 AM) [facility]
[2021-11-06] MEDS ORDERED: IOHEXOL 350 MG/ML 100 ML VIAL. IV ONE (06:30)
[2021-11-06] MEDS ORDERED: IV RINGERS SOLUTION,LACTATED 1,000 ML IV ONE (06:30)
[2021-11-06] MEDS ORDERED: NORMAL SALINE IV PRN (06:30)
[2021-11-06] MEDS ORDERED: VASOPRESSIN IV PRN (06:30)
[2021-11-06 07:00] LABS: BASO % 0 % (0-3); EOS # 0.1 x10^3/uL (0.0-0.7); EOS % 1 % (0-3); HEMATOCRIT 38.7 % (36.0-47.0); LYMPH # 6.1 x10^3/uL (1.0-4.8); LYMPH % 29 % (24-48); MEAN CORPUSCULAR HEMOGLOBIN 31 pg (25-35); MEAN CORPUSCULAR HGB CONC 31 g/dL (31-37); MEAN CORPUSCULAR VOLUME 101 fL (79-100); MONO # 0.4 x10^3/uL (0.0-1.1); MONO % 2 % (0-9); NEUT # 14.3 x10^3uL (1.8-7.7); NEUT % 68 % (31-73); PLATELET COUNT 292 x10^3/uL (140-400); RED BLOOD COUNT 3.83 x10^6/uL (3.50-5.40); WHITE BLOOD COUNT 20.9 x10^3/uL (4.0-11.0)
[2021-11-06 07:22] LABS: ALBUMIN 2.7 g/dL (3.4-5.0); ALBUMIN/GLOBULIN RATIO 0.9 (1.0-1.7); CALCIUM 7.8 mg/dL (8.5-10.1); CREATININE 0.8 mg/dL (0.6-1.0); GFR 81.2; MAGNESIUM 2.7 mg/dL (1.8-2.4); TOTAL BILIRUBIN 0.2 mg/dL (0.2-1.0); TOTAL PROTEIN 5.7 g/dL (6.4-8.2)
[2021-11-06 07:23] LABS: POTASSIUM 3.5 mmol/L (3.5-5.1)
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
[2021-11-06] MEDS ORDERED: IV NORMAL SALINE 100 ML BAG ONE (08:00)
[2021-11-06] MEDS ORDERED: IV DEXTROSE 5% 250 ML IV ONE (08:01)
[2021-11-06] MEDS ORDERED: IV NORMAL SALINE 100ML 100 ML ONE (08:10)
[2021-11-06] MEDS ORDERED: PHENYLEPHRINE INJ 50 MG in IV NORMAL SALINE 250ML 250 ML IV PRN (08:15)
[2021-11-06 08:30] VITALS: BP 77/46
[2021-11-06 09:36] LABS: % ATYL 8 % (0-0); % BANDS 4 % (0-9); % EOS 1 % (0-5); % LYMPHS 56 % (24-48); % MYELOS 1 % (0-0); % SEGS 30 % (35-66)
[2021-11-06 09:47] LABS: PLT ESTIMATE ADEQUATE (ADEQUATE)
== END 2021-11-06 08:40 | disposition short-term general hospital (02) ==
LOC: MERGE 05:13 → ER 05:13 → EDBD 05:13 → ER 08:40
DX: T71.162A Asphyxiation due to hanging, intentional self-harm, initial encounter (principal); I46.9 Cardiac arrest, cause unspecified
CPT/HCPCS: 31500; 36415; 51702; 70450; 70496; 70498; 71045; 71250; 72125; 74176; 80053; 83605; 83735; 84484; 85007; 85025; 85610; 85730; 92950; 99285; J7050